=== PATIENT | female | born 1980 | race African-American/Black ===

== ENCOUNTER 2022-09-19 08:06 | Emergency (ER) | payer SELFPAY ==
[2022-09-19 08:14] VITALS: BP 149/96; PULSE 90; RESP 17; TEMP 36.7; O2SAT 99
--- NOTE | 2022-09-19 08:34 | W.ED.GENAD ---
Discharge Plan Disposition Patient Disposition: HOME Condition: Stable Discharge Details Clinical Impression: Joint swelling, Arthralgia Primary Care Provider: Melissa,Local ED Provider: Lala Mas Home Meds and New Rx's Prescriptions: New prednisone 10 mg tablet 10 mg PO DAILY Qty: 50 0RF Rx Instructions: Take 4 tablets daily for 5 days followed by 3 tablets daily for 5 days followed by 2 tablets daily for 5 days followed by 1 tablet for 5 days and then discontinue Continued metformin 500 mg tablet 1 tab PO BID Label Comments: TAKE 1 TABLET BY MOUTH TWICE DAILY DIRECTED venlafaxine 75 mg tablet 1 tab PO DAILY Label Comments: TAKE 1 TABLET BY MOUTH EVERY DAY atorvastatin 10 mg tablet 1 tab PO QHS Label Comments: TAKE 1 TABLET BY MOUTH EVERY DAY AT BEDTIME venlafaxine 150 mg capsule,extended release 24hr 1 cap PO DAILY Label Comments: TAKE 1 CAPSULE BY MOUTH ONCE DAILY WITH 75MG ergocalciferol (vitamin D2) 1,250 mcg (50,000 unit) capsule 1 cap PO QWEEK Label Comments: TAKE 1 CAPSULE BY MOUTH ONCE WEEKLY losartan 100 mg tablet 1 tab PO DAILY Label Comments: TAKE 1 TABLET BY MOUTH EVERY DAY topiramate 50 mg tablet 1 tab PO BID Label Comments: TAKE 1 TABLET BY MOUTH TWICE DAILY Discharge Instructions Additional Instructions: Start your steroid tomorrow, you received your first therapy today 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 ask if they may have a virtual appointment available, also let your PCP know you are having a flare and see if I have any suggestions Of note, your blood sugars will be elevated while you are on the steroid, when you discontinue the prednisone, they will likely return to normal Please return should you have fever, chills, redness to the affected area, or with any new or worsening complaints Try to rest your right hand is much as possible, apply ice or heat, whatever feels better Stand Alone Forms: Work Release Medical Decision Making Patient appears well, her symptoms are likely consistent with rheumatoid arthritis but she has not on any immunomodulator On discussion with patient regarding follow-up with rheumatology and PCP Will place her on a prednisone taper for the next several weeks She is aware that the prednisone will likely increase her blood sugars and that this is not a long-term plan for her No evidence of secondary infection Will need close outpatient reassessment Return precautions discussed with patient who is understanding Medical Records Medical records reviewed: Yes I reviewed the patient's medical records. Lab Data Lab results reviewed: Yes I reviewed the patient's lab results. HPI General Date/Time Provider Initiated Documentation: 09/19/22 08:20. HPI Narrative: This 42-year-old female with history of rheumatoid arthritis presents with report of swelling to her second and third MCP joints for the past several days. She states this is a typical flare for her. She been working long hours per patient had repetitive motion. She denies any fever or chills. 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 Related Data Home Medications Medication Instructions Recorded Confirmed atorvastatin 10 mg tablet 1 tab PO QHS 09/19/22 09/19/22 ergocalciferol (vitamin D2) 1,250 1 cap PO QWEEK 09/19/22 09/19/22 mcg (50,000 unit) capsule losartan 100 mg tablet 1 tab PO DAILY 09/19/22 09/19/22 metformin 500 mg tablet 1 tab PO BID 09/19/22 09/19/22 prednisone 10 mg tablet 10 mg PO DAILY #50 tabs 09/19/22 topiramate 50 mg tablet 1 tab PO BID 09/19/22 09/19/22 venlafaxine 150 mg 1 cap PO DAILY 09/19/22 09/19/22 capsule,extended release 24 hr venlafaxine 75 mg tablet 1 tab PO DAILY 09/19/22 09/19/22 Previous Rx's Medication Instructions Recorded prednisone 10 mg tablet 10 mg PO DAILY #50 tabs 09/19/22 Allergies Allergy/AdvReac Type Severity Reaction Status Date / Time tramadol Allergy Mild Nausea Unverified 09/19/22 08:21 lisinopril AdvReac Mild Other (See Unverified 09/19/22 08:21 Comment) General Stated Complaint: RashLesion EMMANUELLE: 4 Review of Systems Narrative: Review of systems obtained x3 and negative aside from medication HPI PFSH All Active Problems (Updated 09/19/22 @ 08:43 by KELLY Lamb) Joint swelling (Acute) Arthralgia (Acute) Social History Smoking/Tobacco Use Status: Never Smoking risk assessment performed?: Yes Alcohol Intake: current Alcohol Intake frequency: a few times a week Substance use type: marijuana Exam Extrem Other: Swelling with tenderness noted to right second and third digit, no overlying erythema or significant warmth, no crepitus with palpation, mildly decreased flexion and extension, cap refill intact Distal pulses intact Course Vital Signs Vital signs: Vital Signs Temperature 36.7 C 09/19/22 08:14 Pulse 90 09/19/22 08:14 Respiratory Rate 17 09/19/22 08:14 Blood Pressure 149/96 H 09/19/22 08:14 Pulse Oximetry 99 09/19/22 08:14 Temperature 36.7 C 09/19/22 08:14 Temperature Source Temporal Artery Scan 09/19/22 08:14 Pulse 90 09/19/22 08:14 Respiratory Rate 17 09/19/22 08:14 Respiratory Effort Non-Labored 09/19/22 08:19 Blood Pressure 149/96 H 09/19/22 08:14 Blood Pressure Position Sitting 09/19/22 08:14 Pulse Oximetry 99 09/19/22 08:14 Oxygen Delivery Method Room Air 09/19/22 08:14 Oxygen Flow Rate 0 09/19/22 08:14 Pain Level 8 09/19/22 08:14 PAWSS Have you Been Recently Intoxicated or Drunk Within the Last 30 days?: No Have you Ever Experienced Previous Episodes of Alcohol Withdrawal?: No Have you ever Experienced Withdrawal Seizures?: No Have you ever Experienced Delirium Tremens(DT)s?: No Have you ever undergone Alcohol Rehabilitation Treatment (i.e, inpt ot outpatient treatment programs)?: No Have you ever Experienced Blackouts?: No Have you ever Combined Alcohol with other Downers within the last 90 days?: No Have you ever Combined Alcohol with any other Substance of Abuse during the last 90 days?: No Result: 0
[2022-09-19] MEDS: methylPREDNISolone SUCC 40 MG VIAL IM (08:47)
== END 2022-09-19 08:47 | disposition home or self-care (01) ==
PROVIDERS: Emergency Provider Physician Assistant
DX: M25.541 Pain in joints of right hand (principal); M06.8A Other specified rheumatoid arthritis, other specified site
CPT/HCPCS: 96372; 99284; 99283